=== PATIENT | female | born 1955 | race Two or more races ===

== ENCOUNTER 2025-01-31 05:25 | Day surgery (SDC) | payer OTHER ==
[2025-01-31] MEDS ORDERED: ACETAMINOPHEN 500 MG TABLET (FP) PO PRN (09:23)
[2025-01-31 11:42] VITALS: RESP 18
[2025-01-31] MEDS: LIDOCAINE 1% P/F 10 MG/ML VIAL INF ONE (12:41)
[2025-01-31 13:53] VITALS: BP 122/57; PULSE 71; TEMP 97.5
== END 2025-01-31 14:45 | disposition home or self-care (01) ==
LOC: JASU-SURG 05:25
PROVIDERS: ATTEND Pain Medicine Pain Medicine
PROC: 01HY3MZ Insertion of Neurostimulator Lead into Peripheral Nerve, Percutaneous Approach (ICD-10-PCS; principal; 2025-01-31 12:45)
DX: G89.4 Chronic pain syndrome (principal); M54.31 Sciatica, right side
CPT/HCPCS: 64555; C1778